=== PATIENT | female | born 1930 | race Caucasian/White ===

== ENCOUNTER 2016-07-10 12:01 | Inpatient (IN) | payer OTHER, MEDICARE ==
[~2016-07-10] VITALS: Ht 149.9 cm; Wt 57.3 kg
[~2016-07-10 12:01] MED LIST: AMLODIPINE BESYL5 MG PO; ASPIR 8181 M1 PO; AUGMENTIN875 MG PO; BENADRYL25 MG PO; BISAC-EVAC10 MG PR; BISACODYL5 MG PO; CELECOXIB200 MG PO; CELEXA20 MG PO; CHOLESTYRAMINE L4 GM PO; COLACE100 MG PO; CRESTOR40 MG PO; CRESTOR5 MG PO; CYTOTEC100 MCG PO; DICLOFENAC SODI50 MG PO; DIOVAN160 MG PO; DOLACET 5/5001 EACH PO; DUONEB 2.5-0.5 M3 ML AEROSOL; DUREZOL 0.100 DROP/5 LEFT EYE; ECOTRIN81 M1 PO; FERROUS SULFAT325 M2 PO; HYDROCHLOROTHIA25 MG PO; HYDROCODON-ACE1 EAC7 PO; HYDROCODON-ACE1 EAC9 PO; K-DUR10 MEQ PO; K-DUR20 MEQ PO; KLOR-CON 1010 ME1 PO; KLOR-CON M2020 MEQ PO; LIDOCAINE700 MG TD; LORTAB 5-325 M1 EACH PO; LOTEMAX5 GM LEFT EYE; LOTEMAX5 ML LEFT EYE; MILK OF MAGNESI10 ML PO; MIRTAZAPINE15 MG PO; MIRTAZAPINE7.5 MG PO; MOTRIN600 MG PO; MYRBETRIQ25 MG PO; NORVASC5 MG PO; ONDANSETRON ODT4 MG PO; PRESERVISION A1 EAC2 PO; PROTONIX40 MG PO; REMERON15 M2 PO; TRAMADOL HCL50 MG PO; TRAVATAN 050 DROP/2. BOTH EYES; TRAVATAN Z5 ML BOTH EYES; TRAVATAN Z5 ML RIGHT EYE; Tylenol PM PO; ULTRAM50 MG PO; VESICARE10 MG PO; VICODIN 5-3001 EACH PO; VITAMIN D31000 UNI2 PO; XARELTO10 MG PO
[2016-07-10 13:28] LABS: MCH 30.9 PG (29.0-34.0); MCHC 32.3 G/DL (30.0-36.0); MCV 95.7 FL (83-99); MEAN PLAT.VOLUME 9.9 uM^3 (9.5-12.4); PLATELET COUNT 261 K/uL (156-360); RBC DIS.WIDTH-CV 14.3 % (11.8-14.6); RBC DIS.WIDTH-SD 49.8 % (39-53); WHITE BLOOD COUNT 5.3 K/uL (4.1-10.2)
[2016-07-10 13:51] LABS: TROP-I INTERPRETATION NEGATIVE; TROPONIN-I < 0.01 ng/mL (0.0-0.30)
[2016-07-10 14:05] LABS: ANION GAP 9 MEQ/L (2-14); CHLORIDE 103 MEQ/L (99-109); SAMPLE HEMOLYSIS CHECK 0; SAMPLE ICTERIC CHECK 0; SAMPLE LIPEMIA CHECK 0; SODIUM 143 MEQ/L (136-147)
[2016-07-10 14:10] LABS: GFR ESTIMATE (CALCULATED) > 59 mL/min/; GLUCOSE 108 mg/dL (70-99); UREA NITROGEN (BUN) 13 mg/dL (9-23)
[2016-07-10 15:57] LABS: D-DIMER ELISA 1.16 mg/L FEU (< 0.57)
[2016-07-10] MEDS ORDERED: HYDROCODON-ACE1 EAC9 PO (19:29)
[2016-07-10] MEDS ORDERED: TRAMADOL HCL50 MG PO (19:31)
[2016-07-10 22:00] VITALS: BP 106/73
[2016-07-10 22:30] VITALS: BP 105/67
[2016-07-10 22:30] LABS: INTER. NORMALIZED RATIO 1.1; PROTHROMBIN TIME 10.8 (9.2-11.2); PTT 24.9 (25-32)
[2016-07-10 22:50] VITALS: BP 111/84
[2016-07-10 22:50] LABS: TROP-I INTERPRETATION NEGATIVE; TROPONIN-I < 0.01 ng/mL (0.0-0.30)
[2016-07-11] VITALS (10 sets, daily range): BP systolic 91–144; BP diastolic 59–85
[2016-07-11 04:54] LABS: HEMATOCRIT 43.1 % (36.0-46.0); MCH 30.7 PG (29.0-34.0); MCHC 32.3 G/DL (30.0-36.0); MCV 95.1 FL (83-99); MEAN PLAT.VOLUME 9.8 uM^3 (9.5-12.4); PLATELET COUNT 261 K/uL (156-360); RBC DIS.WIDTH-CV 14.2 % (11.8-14.6); RED BLOOD COUNT 4.53 M/uL (3.80-5.20); WHITE BLOOD COUNT 4.2 K/uL (4.1-10.2)
[2016-07-11 05:05] LABS: CHLORIDE 106 mEq/L (99-109); POTASSIUM 4.3 mEq/L (3.7-5.4); SODIUM 144 mEq/L (136-147)
[2016-07-11 05:08] LABS: GLUCOSE 117 mg/dL (70-99)
[2016-07-11 05:09] LABS: ANION GAP 13 MEQ/L (2-14)
[2016-07-11 05:10] LABS: TOTAL BILIRUBIN 0.5 mg/dL (0.0-1.0)
[2016-07-11 05:11] LABS: ALKALINE PHOSPHATASE 71 IU/L (3-129); GFR ESTIMATE (CALCULATED) > 59 mL/min/
[2016-07-11 05:12] LABS: UREA NITROGEN (BUN) 15 mg/dL (9-23)
[2016-07-11 05:18] LABS: TROP-I INTERPRETATION NEGATIVE; TROPONIN-I < 0.01 ng/mL (0.0-0.30)
[2016-07-12 00:07] VITALS: BP 96/60
[2016-07-12 04:37] VITALS: BP 112/79
[2016-07-12 09:11] VITALS: BP 90/59
[2016-07-12 09:43] LABS: ANION GAP 10 MEQ/L (2-14); CHLORIDE 104 MEQ/L (99-109); SAMPLE HEMOLYSIS CHECK 0; SAMPLE ICTERIC CHECK 0; SAMPLE LIPEMIA CHECK 0; SODIUM 141 MEQ/L (136-147)
[2016-07-12 09:49] LABS: GFR ESTIMATE (CALCULATED) > 59 mL/min/; UREA NITROGEN (BUN) 19 mg/dL (9-23)
[2016-07-12 09:50] LABS: GLUCOSE 197 mg/dL (70-99)
[2016-07-12 10:52] VITALS: BP 108/63
[2016-07-12 15:58] VITALS: BP 103/70
[2016-07-12 20:55] VITALS: BP 123/64
[2016-07-13] VITALS (7 sets, daily range): BP systolic 86–137; BP diastolic 56–99
[2016-07-14 03:45] VITALS: BP 141/83
[2016-07-14 13:34] LABS: C DIFF TOXIN NEGATIVE (NEGATIVE)
[2016-07-14 13:38] LABS: PROBE CHECK PASS; SPECIMEN PROCESSING CONTROL PASS
[2016-07-14] MEDS ORDERED: XARELTO15 MG PO (13:54)
[2016-07-14] MEDS ORDERED: LOPRESSOR25 MG PO (13:54)
== END 2016-07-14 15:57 | disposition home or self-care (01) | DRG 310 ==
LOC: EME 12:01 → 4EAST 20:40 → EDOF 20:40 → 4EAST 22:43
PROVIDERS: Emergency Medicine; Internal Medicine; Physician Assistant
DX: I48.91 Unspecified atrial fibrillation (principal); I48.4 Atypical atrial flutter; R94.31 Abnormal electrocardiogram [ECG] [EKG]; I25.10 Atherosclerotic heart disease of native coronary artery without angina pectoris; I10 Essential (primary) hypertension; I08.1 Rheumatic disorders of both mitral and tricuspid valves; I77.810 Thoracic aortic ectasia; E78.5 Hyperlipidemia, unspecified; F32.9 Major depressive disorder, single episode, unspecified; H40.9 Unspecified glaucoma; M19.90 Unspecified osteoarthritis, unspecified site; I25.2 Old myocardial infarction; Z95.5 Presence of coronary angioplasty implant and graft
CPT/HCPCS: 71020; 71275; 80048; 80053; 83880; 84443; 84484; 85027; 85379; 85610; 85730; 87493; 93005; 93306; 93971; 99281; 99285